=== PATIENT | female | born 1950 | race African-American/Black ===

== ENCOUNTER 2019-07-18 17:18 | Emergency (ER) | payer MEDICARE ==
--- NOTE | 2019-07-18 18:36 | CT ---
Alida spine Technique: Multiple axial sections were obtained from above C1 inferiorly to the bottom of T2. Reconstructed sagittal and coronal images were reviewed. Findings: Disc space narrowing seen at C4-C5 C5-C6 and C6-C7. Posterior osteophytes are seen at these same levels as well as anterior osteophytes. Mild right-sided neural foraminal stenosis is seen at C5-C6. Other neural foramina are fairly well patent. No bony central canal stenosis is seen. Vertebral bodies and posterior arches are intact with no fracture being seen. Mild scattered degenerative apophyseal change is seen. No abnormal subluxation is seen. Degenerative spurring is noted within the uncovertebral joints primarily at C5-C6 and C6-C7. Impression: 1. Degenerative change as noted above. Nothing acute is appreciated on CT study of the cervical spine. Diagnostic code #2
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
[2019-07-18] MEDS ORDERED: Ibuprofen 800 MG Tab PO ONE (19:13)
--- NOTE | 2019-07-19 07:48 | CR ---
Lumbar spine: AP, lateral and coned-down lateral view centered to the lumbosacral junction were obtained. Comparison: No prior lumbar spine imaging is available. Spondylolisthesis is noted at L4-L5 measuring about 1.1 cm. This is most likely due to severe degenerative apophyseal change. Moderate disc space narrowing is seen at L4-L5. Posterior disc space narrowing is seen at L3-L4 and L5-S1. Posterior disc space narrowing is also noted at L1-L2. Anterior osteophytes are seen most prominent within the lower thoracic spine and at T12-L1. Pedicles are intact. Visualized transverse and spinous processes are intact. Sacroiliac joints are within normal limits. Impression: 1. Degenerative change as noted above. Nothing acute is appreciated on two-view lumbar spine. Diagnostic code #2
== END 2019-07-18 19:25 | disposition home or self-care (01) ==
LOC: JD.ED 17:18
DX: S16.1XXA Strain of muscle, fascia and tendon at neck level, initial encounter (principal); S39.012A Strain of muscle, fascia and tendon of lower back, initial encounter; Z79.899 Other long term (current) drug therapy; V87.7XXA Person injured in collision between other specified motor vehicles (traffic), initial encounter; Y92.481 Parking lot as the place of occurrence of the external cause
CPT/HCPCS: 72100; 72100-26; 72125; 72125-26; 99284-25

== ENCOUNTER 2019-09-15 09:06 | Emergency (ER) | payer MEDICARE ==
--- NOTE | 2019-09-15 10:41 | EDM.PDOC ---
ED HPI GENERAL MEDICAL PROBLEM - General Chief Complaint: Respiratory Problem Stated Complaint: COUGH AND RUNNY NOSE EAR PAIN Time Seen by Provider: 09/15/19 09:48 Source of Information: Reports: Patient History Limitations: Reports: No Limitations - History of Present Illness INITIAL COMMENTS - FREE TEXT/NARRATIVE: The patient presents with multiple grandchildren for cold symptoms. She has a cough, congestion and runny nose. She does not have a fever or muscle aches. She has no chest pain, shortness of breath, abdominal pain, nausea or vomiting. She has no history of COPD or asthma. She does have a granddaughter that had influenza B last week. Onset: Gradual Duration: Day(s): Severity: Mild Improves with: Reports: None Worsens with: Reports: None Associated Symptoms: Reports: Cough. Denies: Chest Pain, Fever/Chills, Headaches, Nausea/Vomiting, Shortness of Breath - Related Data Allergies Allergy/AdvReac Type Severity Reaction Status Date / Time No Known Allergies Allergy Verified 09/15/19 10:32 Home Meds: Home Meds Lisinopril 10 mg PO DAILY 07/18/19 [History] Oseltamivir [Tamiflu] 75 mg PO DAILY #10 cap 09/15/19 [Rx] Past Medical History Cardiovascular History: Reports: High Cholesterol, Hypertension Social & Family History - Family History Family Medical History: Noncontributory - Caffeine Use Caffeine Use: Reports: Other Other Caffeine Use: Unknown. ED ROS GENERAL - Review of Systems Review Of Systems: See Below Constitutional: Reports: No Symptoms HEENT: Reports: Other (Congestion) Respiratory: Reports: Cough. Denies: Shortness of Breath Cardiovascular: Reports: No Symptoms Endocrine: Reports: No Symptoms GI/Abdominal: Reports: No Symptoms : Reports: No Symptoms Musculoskeletal: Reports: No Symptoms ED EXAM, GENERAL - Physical Exam Exam: See Below Exam Limited By: No Limitations General Appearance: Alert, No Apparent Distress Ears: Normal External Exam, Normal Canal, Normal TMs Nose: Normal Inspection Head: Atraumatic, Normocephalic Neck: Normal Inspection, Supple, Non-Tender Respiratory/Chest: No Respiratory Distress, Lungs Clear, Normal Breath Sounds Cardiovascular: Regular Rate, Rhythm, No Edema, No Murmur GI/Abdominal: Soft, Non-Tender, No Organomegaly, No Mass Back Exam: Normal Inspection Extremities: Normal Inspection Neurological: Alert, Oriented, No Motor/Sensory Deficits Course - Vital Signs Last Recorded V/S: Last Vital Signs Temp 97.1 F 09/15/19 10:30 Pulse 68 09/15/19 10:30 Resp 19 09/15/19 10:30 BP 126/65 09/15/19 10:30 Pulse Ox 98 09/15/19 10:30 - Re-Assessments/Exams Free Text/Narrative Re-Assessment/Exam: 09/15/19 10:40 I ordered influenza. 09/15/19 12:10 The influenza is negative. I will get her on tamiflu to help prevent infection. Departure - Departure Time of Disposition: 12:15 Disposition: Home, Self-Care 01 Condition: Good Clinical Impression: Exposure to influenza, Viral URI - Discharge Information *PRESCRIPTION DRUG MONITORING PROGRAM REVIEWED*: Not Applicable *COPY OF PRESCRIPTION DRUG MONITORING REPORT IN PATIENT ANNETTE: Not Applicable Prescriptions: Oseltamivir [Tamiflu] 75 mg PO DAILY #10 cap Referrals: Giana Diaz, CLARIFICATION OPERATOR [Primary Care Provider] - Forms: ED Department Discharge Additional Instructions: Drink plenty of fluids. Take the tamiflu daily for 10 days. Take tylenol or motrin for any pain or fever. Sepsis Event Note - Evaluation Sepsis Screening Result: No Definite Risk - Focused Exam Vital Signs: Vital Signs Temp Pulse Resp BP Pulse Ox 09/15/19 10:30 97.1 F 68 19 126/65 98 Date Exam was Performed: 09/15/19 Time Exam was Performed: 12:10
== END 2019-09-15 12:28 | disposition home or self-care (01) ==
LOC: JD.ED 09:06
DX: Z20.828 Contact with and (suspected) exposure to other viral communicable diseases (principal); J06.9 Acute upper respiratory infection, unspecified; I10 Essential (primary) hypertension; Z79.899 Other long term (current) drug therapy
CPT/HCPCS: 87804; 99282; 99283

== ENCOUNTER 2019-11-29 10:08 | Emergency (ER) | payer MEDICARE ==
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
--- NOTE | 2019-11-29 12:36 | CR ---
Left forearm: Two views of the left forearm were obtained. Comparison: No prior left forearm study is available. No fracture or other abnormality is appreciated. Impression: 1. No abnormality is identified on left forearm study. Diagnostic code #1 This report was dictated in [place] Standard Time
--- NOTE | 2019-11-29 12:36 | CR ---
Left femur: AP and lateral views of the left femur were obtained. Comparison: No prior femur exam. Osteophytes are noted off the medial and lateral joint space of the knee. Mild joint space narrowing is seen superiorly within the left hip. No fracture or other bony abnormality is seen. Impression: 1. Degenerative change within the left hip and left knee. 2. Nothing acute is seen on left femur study. Diagnostic code #2 This report was dictated in [place] Standard Time
--- NOTE | 2019-11-29 12:36 | CR ---
Right knee: AP and lateral views of the right knee were obtained. Comparison: No prior knee exam. Moderate narrowing of the lateral joint compartment is seen with lateral osteophytes. No joint effusion is seen. No fracture or other abnormality is seen. Impression: 1. Lateral degenerative change within the right knee. 2. Nothing acute is seen on two-view right knee exam. Diagnostic code #2 This report was dictated in [place] Standard Time
--- NOTE | 2019-11-29 12:36 | CR ---
Left shoulder: Three views of the left shoulder were obtained. Comparison: No prior shoulder exam. Mild inferior spurring is seen within the acromioclavicular joint. Glenohumeral joint appears within normal limits. No fracture, dislocation or other bony abnormality is identified. Impression: 1. Slight inferior spurring within the acromioclavicular joint. 2. Left shoulder study is otherwise unremarkable. Diagnostic code #2 This report was dictated in [place] Standard Time
--- NOTE | 2019-11-29 12:36 | CR ---
Thoracic spine: AP and lateral views of the thoracic spine were obtained. Mild disc space narrowing is noted within the upper thoracic spine. Mild kyphosis is present. Slight scattered endplate osteophytes are noted as well as mild scoliosis. Pedicles are intact. No subluxation or acute fracture is appreciated. Impression: 1. Disc space narrowing within the upper thoracic spine with kyphosis. 2. Mild scattered endplate osteophytes with mild scoliosis. Diagnostic code #2 This report was dictated in [place] Standard Time
== END 2019-11-29 12:10 | disposition home or self-care (01) ==
LOC: JD.ED 10:08
DX: S39.012A Strain of muscle, fascia and tendon of lower back, initial encounter (principal); S70.02XA Contusion of left hip, initial encounter; S80.02XA Contusion of left knee, initial encounter; S80.01XA Contusion of right knee, initial encounter; S40.012A Contusion of left shoulder, initial encounter; I10 Essential (primary) hypertension; Z79.899 Other long term (current) drug therapy; W01.0XXA Fall on same level from slipping, tripping and stumbling without subsequent striking against object, initial encounter; Y92.512 Supermarket, store or market as the place of occurrence of the external cause
CPT/HCPCS: 72070; 72070-26; 73030-26-LT; 73030-LT; 73090-26-LT; 73090-LT; 73552-26-LT; 73552-LT; 73560-26-RT; 73560-RT; 99283; 99283-25